=== PATIENT | female | born 1940 | race Caucasian/White ===

== ENCOUNTER 2016-09-18 08:26 | Day surgery (SDC) | payer MEDICARE ==
--- NOTE | ~2016-09-18 | EGD ---
EGD REPORT [facility] [address] [id number] NAME: MIKE MALONE : [birth year] STATUS : REG [facility]#: [id number] AGE: 76 ADM/REG DATE : 09/18/16 MR#: [id number] REPORT SERV DATE: 09/18/16 DICTATED BY: LELE ESCOBAR DATE: 09/18/16 REPORT STATUS : Draft TRANSCRIBED BY: [employer] DATE: 09/18/16 [facility] Patient Name: Mike Malone Date of : 1940 Attending MD: LELE ESCOBAR MD Procedure Date No Time: 09/18/2016 Procedure: Colonoscopy Indications: High risk colon cancer surveillance: Personal history of colonic polyps Referring MD: LASHON MARS Medicines: Monitored Anesthesia Care Complications: No immediate complications. Procedure: Pre-Anesthesia Assessment: - ASA Grade Assessment: III - A patient with severe systemic disease. After I obtained informed consent, the scope was passed under direct vision. Throughout the procedure, the patient's blood pressure, pulse, and oxygen saturations were monitored continuously. The PCF [id number] was introduced through the anus and advanced to the cecum, identified by appendiceal orifice and ileocecal valve. The colonoscopy was performed without difficulty. The patient tolerated the procedure well. The quality of the bowel preparation was adequate. Findings: The digital rectal exam was normal. Pertinent negatives include no palpable rectal lesions. Multiple diverticula were found in the sigmoid colon and in the descending colon. Hemorrhoids were found during retroflexion and were moderate. Impression: - Diverticulosis in the sigmoid colon and in the descending colon. - Hemorrhoids. Recommendation: - Patient has a contact number available for emergencies. The signs and symptoms of potential delayed complications were discussed with the patient. Return to normal activities tomorrow. Written discharge instructions were provided to the patient. - Regular diet. - Continue present medications. - Repeat colonoscopy in 5 years for surveillance. - Return to GI clinic PRN. EGD REPORT [facility] [address] [id number] NAME: MIKE MALONE : [birth year] STATUS : REG [facility]#: [id number] AGE: 76 ADM/REG DATE : 09/18/16 MR#: [id number] REPORT SERV DATE: 09/18/16 DICTATED BY: LELE ESCOBAR DATE: 09/18/16 REPORT STATUS : Draft TRANSCRIBED BY: [employer] DATE: 09/18/16 Procedure Code(s): --- Professional --- 64558, Colonoscopy, flexible, proximal to splenic flexure; diagnostic, with or without collection of specimen(s) by brushing or washing, with or without colon decompression (separate procedure) Diagnosis Code(s): --- Professional --- K64.9, Unspecified hemorrhoids K57.30, Diverticulosis of large intestine without perforation or abscess without bleeding Z86.010, Personal history of colonic polyps CPT copyright 2013 [employer]. All rights reserved. The codes documented in this report are preliminary and upon shoveler review may be revised to meet current compliance requirements. LELE ESCOBAR MD 09/18/2016 10:32 AM This report has been signed electronically. Number of Addenda: 0 Note Initiated On: 09/18/2016 10:09 AM Scope Withdrawal Time 0 hours 7 minutes 30 seconds [id number] [id number]
[~2016-09-18 08:26] MED LIST: AMB5 PO; AMBIEN PO; ASAB PO; AUG875 PO; B12100T PO; CALTRA600D PO; COREG12 PO; FISH-EPA1000 MG PO; HCTZ25B PO; HYDROCHLOROT25 MG PO; HYDROCHLOROTHIAZIDE PO; PRAVACHOL40 MG PO; PRILO PO; SIMVASTATIN PO; SUCR PO; VITC500 PO; ZOCOR40 PO
== END 2016-09-18 23:59 | disposition home or self-care (01) ==
LOC: DMU 08:26
PROVIDERS: Internal Medicine Gastroenterology
PROC: 0DJD8ZZ Inspection of Lower Intestinal Tract, Via Natural or Artificial Opening Endoscopic (ICD-10-PCS; principal; 2016-09-18 10:00)
DX: Z12.11 Encounter for screening for malignant neoplasm of colon (principal); K64.9 Unspecified hemorrhoids; K57.30 Diverticulosis of large intestine without perforation or abscess without bleeding; G47.33 Obstructive sleep apnea (adult) (pediatric); I12.9 Hypertensive chronic kidney disease with stage 1 through stage 4 chronic kidney disease, or unspecified chronic kidney disease; N18.9 Chronic kidney disease, unspecified; K31.84 Gastroparesis; Z90.710 Acquired absence of both cervix and uterus; Z86.010 Personal history of colon polyps; Z98.890 Other specified postprocedural states